=== PATIENT | female | born 1955 ===

== ENCOUNTER 2017-07-13 15:20 | Outpatient (CLI) | payer BC ==
--- NOTE | 2017-07-13 16:28 | XRay Report ---
XRAY LEFT KNEE 4 THREE VIEWS: 07/13/17 CLINICAL: Left knee pain. FINDINGS: Moderate osteopenia.Moderate osteoarthritis with greater narrowing of the medial joint space. Large reveal and lateral osteophytes. Large patellofemoral joint osteophytes. No joint effusion. No fracture or dislocation.Normal soft tissues. IMPRESSION: Moderate osteoarthritis.
== END 2017-07-13 15:21 | disposition home or self-care (01) ==
LOC: SPVIMAG 15:20
PROVIDERS: ATTEND Orthopaedic Surgery
DX: M17.12 Unilateral primary osteoarthritis, left knee (principal); M85.862 Other specified disorders of bone density and structure, left lower leg